=== PATIENT | female | born 1975 | race Caucasian/White ===

== ENCOUNTER → 2016-08-03 | Outpatient (CLI) | payer MEDICAID ==
[~2016-08-03] MED LIST: ALAVERT10 M1 PO; ALDACTONE50 MG PO; AMBIEN 5MG TABLE5 MG PO; AMBIEN CR12.5 MG PO; ATARAX 25MG25 MG/TAB PO; ATIVAN 0.50.5 MG/TAB PO; ATIVAN 1MG T1 MG/TAB PO; ATIVAN0.5 MG PO; AUVI-Q0.3 IM; BACTRIM DS 8001 TA1 PO; BACTRIM DS 8001 TAB PO; BACTROBAN NASA0.9 GM NS; BUSPAR DIVIDOSE15 MG PO; BUSPAR10 MG PO; BUSPAR5 MG PO; BUSPIRONE15 MG PO; CALCIUM600 M1 PO; CATAPRES 0.1MG0.1 MG PO; CELEXA 20MG20 MG/TAB PO; CEPHALEXIN500 M1 PO; CIPRO 500MG TA500 MG PO; CIPRO500 MG PO; CLARITIN 1010 MG/TAB PO; CLEOCIN HCL300 MG PO; COLACE 100100 MG/CAP PO; COLESTID 1GM1 G PO; DESYREL 100MG100 MG PO; DIFLUCAN 100MG100 MG PO; EFFEXOR-XR150 MG PO; EPIPEN 2-PAK1 MG/ML IM; ESKALITH; FLEXERIL 1010 MG/TAB PO; FLEXERIL10 MG PO; FLOVENT 110MCG7.9 GM; FLOVENT 44MCG I13 GM IH; HYDROCORTISONE SUPP; HYDROXYZINE HCL25 MG PO; IRON65 M1 PO; KLONOPIN 1MG1 MG PO; LAMICTAL 100MG100 MG PO; LEVAQUIN 5500 MG/TA1 PO; LEVAQUIN500 MG PO; LEXAPRO20 MG PO; LITHIUM 60600 MG/CAP PO; LOESTRIN 24 FE1 TAB PO; LORTAB 10/500 51 TAB PO; LORTAB 5/500 501 TAB PO; LORTAB 7.5/5001 TAB PO; MAGIC MOUTHWASH1 M1 PO; MAGNESIUM500 MG PO; MULTIVITAMIN FO1 CAP PO; MUSCLE RELAXER; NEURONTIN300 MG/CAP PO; NORCO 325 MG-51 TAB PO; OXYCODONE10 MG PO; OXYCONTIN10 MG PO; PERCOCET 325 MG1 TA2 PO; PERCOCET 325 MG1 TAB PO; PHENERGAN 25 TA25 MG; PHENERGAN 25 TA25 MG PO; PHENERGAN25 MG RC; PREDNISONE10 MG PO; PREDNISONE20 MG PO; PRILOSEC 20MG20 MG PO; PROAIR HFA0.09 MG/AC IH; ROBAXIN 75750 MG/TAB PO; SAVELLA100 MG PO; SINGULAIR 110 MG/TAB PO; TOPAMAX 25MG25 M1 PO; VICODIN 5/5001 UDTAB PO; VITAMIN C BUFF500 MG PO; VYVANSE50 MG PO; XANAX .25M0.25 MG/TA PO; ZOFRAN4 M1 PO; ZOLOFT 100MG100 MG PO; ZYRTEC 10MG10 MG PO; [UNRECOGNIZED DRUG - OTHER] PO
== END ==
LOC: MC.RAD 13:00
DX: D48.61 Neoplasm of uncertain behavior of right breast (principal)

== ENCOUNTER → 2018-01-24 | Outpatient (CLI) | payer MEDICAID | LOC: COL.RAD 12:54 | DX: M51.16 Intervertebral disc disorders with radiculopathy, lumbar region (principal); M46.86 Other specified inflammatory spondylopathies, lumbar region ==

== ENCOUNTER → 2018-02-07 | Outpatient (CLI) | payer MEDICAID | LOC: MHCPAIN 08:39 | DX: G89.29 Other chronic pain (principal); M47.817 Spondylosis without myelopathy or radiculopathy, lumbosacral region; M54.16 Radiculopathy, lumbar region; M53.3 Sacrococcygeal disorders, not elsewhere classified | CPT/HCPCS: G0463 ==

== ENCOUNTER 2018-03-13 23:37 | Emergency (ER) | payer BC ==
[~2018-03-13] VITALS: Ht 152.4 cm; Wt 79.1 kg
[2018-03-13 23:46] VITALS: PULSE 68; TEMP 98.2
[2018-03-14 00:37] LABS: COLLECTION METHOD CLEAN CATCH
[2018-03-14 00:49] LABS: BASO # 0.1 (0.0-0.2); BASO % 0.6 % (0.0-2.0); EOS # 0.1 (0.0-0.7); EOS % 1.6 % (0-4.0); GRAN # 4.5 (1.4-6.5); GRAN % 57.6 % (42.2-75.2); HEMATOCRIT 40.7 % (37.0-47.0); HEMOGLOBIN 13.9 g/dl (12.5-16.0); LYMPH # 2.8 (1.2-3.4); LYMPH % 34.9 % (20.0-51.0); MEAN CELL VOLUME 88 fl (80.0-100.0); MEAN CORPUSCULAR HEMOGLOBIN 30 pg (27.0-31.0); MEAN CORPUSCULAR HGB CONC 34 g/dl (33.0-37.0); MEAN PLATELET VOLUME 10.9 fl (7.4-10.4); MONO # 0.4 (0.1-0.6); MONO % 5.2 % (1.7-9.3); PLATELET COUNT 226 K/mm3 (130-400); RED BLOOD COUNT 4.63 M/mm3 (4.10-5.30); REDCELL DISTRIBUTION WIDTH-CV 11.9 % (11.5-14.5)
[2018-03-14 00:58] LABS: ALANINE AMINOTRANSFERASE 30 U/L (9-52); ALKALINE PHOSPHATASE 74 U/L (50-136); ANION GAP 10 mmol/L (7-16); AST,SGOT 35 U/L (15-37); BILIRUBIN,TOTAL 0.3 mg/dL (0.0-1.0); BLOOD UREA NITROGEN 15 mg/dL (7-17); CALCIUM 8.4 mg/dL (8.4-10.2); CARBON DIOXIDE 23 mmol/L (22-30); CHLORIDE 103 mmol/L (98-107); CREATININE, serum 0.49 mg/dL (0.52-1.25); GLUCOSE 98 mg/dL (74-106); LIPASE 105 U/L (23-300); POTASSIUM 3.4 mmol/L (3.4-5.0); SODIUM 137 mmol/L (137-145); TOTAL PROTEIN 6.8 gm/dL (6.4-8.2)
[2018-03-14 01:00] LABS: MUCOUS Present /lpf; PH 5 (5-8); SQUAMOUS EPITHELIAL 0-2 /hpf; URINE APPEARANCE Clear; URINE BACTERIA None Seen /hpf; URINE BILIRUBIN Negative (NEGATIVE); URINE BLOOD 2+ (NEGATIVE); URINE COLOR Yellow; URINE GLUCOSE Negative (NEGATIVE); URINE KETONE Negative (NEGATIVE); URINE LEUKOCYTE ESTERASE Negative (NEGATIVE); URINE NITRATE Negative (NEGATIVE); URINE PROTEIN(semi-quant) Negative (NEGATIVE); URINE RBC 20-50 /hpf; URINE UROBILINOGEN Negative (NEGATIVE)
[2018-03-14 01:11] LABS: TROPONIN-I < 0.012 ng/mL (0.000-0.034)
[2018-03-14 03:35] VITALS: BP 118/83
== END 2018-03-14 03:35 | disposition home or self-care (01) ==
LOC: COL.ER 23:37
PROVIDERS: Emergency Medicine
DX: R09.1 Pleurisy (principal); F41.9 Anxiety disorder, unspecified; Z79.51 Long term (current) use of inhaled steroids
CPT/HCPCS: J1100; J1885; J7030

== ENCOUNTER 2018-05-13 16:39 | Emergency (ER) | payer SELFPAY ==
[~2018-05-13] VITALS: Ht 160 cm; Wt 83.6 kg
[2018-05-13 16:44] VITALS: TEMP 98.7
[2018-05-13] MEDS ORDERED: GRALISE600 MG PO (17:00)
[2018-05-13] MEDS ORDERED: HYSINGLA (17:22)
[2018-05-13] MEDS ORDERED: NARCAN4 MG NS (17:23)
[2018-05-13] MEDS ORDERED: PREDNISONE20 MG PO ×2 (17:50)
[2018-05-13] MEDS ORDERED: ZOFRAN ODT4 MG PO ×2 (18:33)
[2018-05-13 18:45] VITALS: BP 107/69; PULSE 76
== END 2018-05-13 18:45 | disposition home or self-care (01) ==
LOC: COL.ER 16:39
DX: T78.1XXA Other adverse food reactions, not elsewhere classified, initial encounter (principal)
CPT/HCPCS: J1200; J2405; J2930; J7030

== ENCOUNTER → 2018-08-28 | Emergency (ER) | payer SELFPAY ==
[~2018-08-28] VITALS: Ht 160 cm; Wt 80.9 kg
[~2018-08-28] MED LIST changes: +GRALISE600 MG PO; +HYSINGLA; +NARCAN4 MG NS; +ZOFRAN ODT4 MG PO
[2018-08-28 17:23] VITALS: BP 139/65; TEMP 98
[2018-08-28 20:10] VITALS: PULSE 69
[2018-08-30 17:14] LABS: COLLECTION METHOD CLEAN CATCH
[2018-08-30 17:17] LABS: ALBUMIN 3.8 gm/dL (3.5-5.0); BILIRUBIN,TOTAL 0.5 mg/dL (0.0-1.0); CALCIUM 8.6 mg/dL (8.4-10.2); CREATININE, serum 0.49 mg/dL (0.52-1.25); POTASSIUM 4.2 mmol/L (3.4-5.0); TOTAL PROTEIN 6.6 gm/dL (6.4-8.2)
[2018-08-30 17:18] LABS: BASO # 0.1 (0.0-0.2); EOS # 0.3 (0.0-0.7); EOS % 5.5 % (0-4.0); GRAN % 48.4 % (42.2-75.2); HEMATOCRIT 40.3 % (37.0-47.0); HEMOGLOBIN 13.3 g/dl (12.5-16.0); LYMPH # 2.6 (1.2-3.4); LYMPH % 42.2 % (20.0-51.0); MEAN CELL VOLUME 99 fl (80.0-100.0); MEAN CORPUSCULAR HEMOGLOBIN 33 pg (27.0-31.0); MEAN CORPUSCULAR HGB CONC 33 g/dl (33.0-37.0); MEAN PLATELET VOLUME 10.8 fl (7.4-10.4); MONO # 0.2 (0.1-0.6); MONO % 2.7 % (1.7-9.3); MUCOUS Present /lpf; PH 6 (5-8); PLATELET COUNT 247 K/mm3 (130-400); RED BLOOD COUNT 4.09 M/mm3 (4.10-5.30); REDCELL DISTRIBUTION WIDTH-CV 12.1 % (11.5-14.5); URINE APPEARANCE Clear; URINE BACTERIA None Seen /hpf; URINE BILIRUBIN Negative (NEGATIVE); URINE BLOOD 1+ (NEGATIVE); URINE COLOR Yellow; URINE GLUCOSE Negative (NEGATIVE); URINE KETONE Negative (NEGATIVE); URINE LEUKOCYTE ESTERASE Negative (NEGATIVE); URINE NITRATE Negative (NEGATIVE); URINE PROTEIN(semi-quant) Negative (NEGATIVE); URINE RBC 20-50 /hpf
== END ==
LOC: COL.ER 17:10
PROVIDERS: Family Medicine
DX: R31.9 Hematuria, unspecified (principal); R94.5 Abnormal results of liver function studies; Z90.89 Acquired absence of other organs; Z90.49 Acquired absence of other specified parts of digestive tract
CPT/HCPCS: J2765; J3010; J7030